=== PATIENT | male | born 1960 | race African-American/Black ===

== ENCOUNTER 2023-02-15 14:23 | Emergency (ER) | payer OTHER ==
[2023-02-15 14:47] VITALS: RESP 18; TEMP 98.3; BMI 27.7
[2023-02-15 17:01] LABS: BASO % 1.1 % (0-2.0); EOS % 1.4 % (0-4.5); HEMATOCRIT 34.7 % (35.4-49); HEMOGLOBIN 11.5 GM/dL (11.7-16.9); LYMPH % 19.3 % (8-40); MCH 28.6 pg (25.7-33.7); MCHC 33.1 g/dl (32.0-35.9); MEAN CELL VOLUME 86.4 fl (80-96); MEAN PLT VOLUME 8.6 fl (7.5-11.1); MONO % 8.6 % (3.8-10.2); NEUT % 69.6 % (42.8-82.8); PLATELET COUNT 274 10^3/uL (134-434); RBC 4.02 M/mm3 (4.00-5.60); RDW 13.7 % (11.9-15.9); WHITE BLOOD COUNT 5.6 K/mm3 (4.0-10.0)
[2023-02-15 17:13] LABS: PROTHROMBIN TIME (PATIENT) 11.6 SEC (9.7-13.0)
[2023-02-15 17:16] LABS: ACTIVATED PTT 30.3 SECONDS (25.2-36.5)
[2023-02-15 17:38] LABS: POTASSIUM 4.3 mmol/L (3.5-5.1)
[2023-02-15 17:40] LABS: CALCIUM 9.4 mg/dL (8.5-10.1)
[2023-02-15 17:41] LABS: ALBUMIN 3.5 g/dl (3.4-5.0); BLOOD UREA NITROGEN 24.7 mg/dL (7-18); MAGNESIUM 2.3 mg/dL (1.8-2.4)
[2023-02-15] MEDS ORDERED: LABETALOL HCL 5 MG/1 ML (100MG/20 ML VIAL) IVPUSH ONE (17:42)
[2023-02-15 17:44] LABS: CREATININE 2.2 mg/dL (0.55-1.3)
[2023-02-15 17:45] LABS: BILIRUBIN,TOTAL 0.3 mg/dL (0.2-1); TOT PROT 7.6 g/dl (6.4-8.2)
[2023-02-15 17:49] LABS: N-TERMINAL BNP 1195.3 pg/ml (5-125)
[2023-02-15] MEDS ORDERED: LABETALOL HCL 20 MG/4 ML VIAL ONE (18:01)
[2023-02-15] MEDS ORDERED: NICARDIPINE 25 MG in DEXTROSE 5%-WATER - 240 ML IVPB SCH (18:30)
[2023-02-15] MEDS ORDERED: niCARdipine HCL 25 MG/10 ML AMPUL IVPB ONE (18:35)
[2023-02-15 19:18] VITALS: PULSE 63
[2023-02-15 19:28] VITALS: BP 197/98
== END 2023-02-15 19:30 | disposition short-term general hospital (02) ==
LOC: JER 14:23
PROC: 3E033GC Introduction of Other Therapeutic Substance into Peripheral Vein, Percutaneous Approach (ICD-10-PCS; principal; 2023-02-15)
PROC: 3E033GC Introduction of Other Therapeutic Substance into Peripheral Vein, Percutaneous Approach (ICD-10-PCS; 2023-02-15)
DX: I63.81 Other cerebral infarction due to occlusion or stenosis of small artery (principal)
CPT/HCPCS: 36415; 70450-TC; 71045-TC-FY; 80053; 83735; 83880; 84484; 85025; 85610; 85730; 93005; 93010; 99291